=== PATIENT | female | born 1980 | race Caucasian/White ===

== ENCOUNTER 2019-12-02 11:47 | Emergency (ER) | payer OTHER, SELFPAY ==
[2019-12-05 15:02] LABS: SARS-CoV-2 MS2 Positive; SARS-CoV-2 N Gene Negative; SARS-CoV-2 S Gene Negative; SARS-CoV-2 by NAA Not Detected (NotDetected); SARS-CoV-2 orf1ab Negative
== END 2019-12-02 12:45 | disposition home or self-care (01) ==
LOC: NAV ERS 11:47
DX: J30.9 Allergic rhinitis, unspecified (principal); R53.83 Other fatigue; Z20.828 Contact with and (suspected) exposure to other viral communicable diseases; F41.9 Anxiety disorder, unspecified; F31.9 Bipolar disorder, unspecified; F20.9 Schizophrenia, unspecified; F17.210 Nicotine dependence, cigarettes, uncomplicated; Z79.899 Other long term (current) drug therapy
CPT/HCPCS: 87635; 99283; U0003

== ENCOUNTER 2022-01-28 16:41 | Emergency (ER) | payer BC, OTHER | END 2022-01-28 18:20 | disposition home or self-care (01) | LOC: NAV ERS 16:41 | DX: R04.2 Hemoptysis (principal); F17.210 Nicotine dependence, cigarettes, uncomplicated; E03.9 Hypothyroidism, unspecified; M79.7 Fibromyalgia; Z79.899 Other long term (current) drug therapy | CPT/HCPCS: 71046; 94664 ==

== ENCOUNTER 2025-03-27 16:12 | Emergency (ER) | payer BC, SELFPAY ==
[2025-03-27] MEDS ORDERED: Lidocaine 1% (PF) 30 ML VIAL ONE (16:29)
== END 2025-03-27 17:25 | disposition home or self-care (01) ==
LOC: NAV ERS 16:12
DX: S01.81XA Laceration without foreign body of other part of head, initial encounter (principal); F17.210 Nicotine dependence, cigarettes, uncomplicated; F17.290 Nicotine dependence, other tobacco product, uncomplicated; W01.0XXA Fall on same level from slipping, tripping and stumbling without subsequent striking against object, initial encounter
CPT/HCPCS: 12014; 70450; J2003